=== PATIENT | female | born 1985 | race Caucasian/White ===

== ENCOUNTER 2019-09-18 09:37 | Outpatient (CLI) | payer OTHER ==
--- NOTE | 2019-09-18 10:25 | MMO ---
Bilateral MAMMO Bilat Diag [facility]. CLINICAL HISTORY: Patient is 34 years old and is seen for diagnostic exam and pain in the right breast. The patient has the following family history of breast cancer: maternal grandmother, malignant (generic) and maternal grandmother, malignant (generic), [place]. The patient has no personal history of cancer. VIEWS: The views performed were: bilateral craniocaudal with tomosynthesis; bilateral mediolateral oblique with tomosynthesis; and bilateral mediolateral with tomosynthesis. This study has been interpreted with the assistance of computer-aided detection. MAMMOGRAM FINDINGS: The breasts are heterogeneously dense, which could obscure a lesion on mammography. There are no suspicious masses, suspicious calcifications, or new areas of architectural distortion. There are no mammographic abnormalities to explain the patient's breast pain. The patient is referred back to her clinician. Negative imaging findings should not preclude biopsy if clinical findings are suspicious. IMPRESSION: THERE ARE NO MAMMOGRAPHIC ABNORMALITIES TO EXPLAIN THE PATIENT'S BREAST PAIN. THE PATIENT IS REFERRED BACK TO HER CLINICIAN. NEGATIVE IMAGING FINDINGS SHOULD NOT PRECLUDE BIOPSY IF CLINICAL FINDINGS ARE SUSPICIOUS. THE RESULTS OF THIS EXAM WERE SENT TO THE PATIENT. ACR BI-RADS Category 1 - Negative MAMMOGRAPHY NOTE: 1. A negative mammogram report should not delay a biopsy if a dominant of clinically suspicious mass is present. 2. Approximately 10% to 15% of breast cancers are not detected by mammography. 3. Adenosis and dense breasts may obscure an underlying neoplasm. Reported by: SARAH JONES MD Electonically Signed: [id number]
== END 2019-09-18 09:38 | disposition home or self-care (01) ==
LOC: BICMAMMO 09:37
PROVIDERS: ATTEND Nurse Practitioner Family
DX: N64.4 Mastodynia (principal)
CPT/HCPCS: 77066; G0279

== ENCOUNTER 2020-02-11 09:52 | Day surgery (SDC) | payer OTHER ==
[2020-02-08 15:14] LABS: Hemoglobin 12.5 g/dL (12.0-16.0); Mean Corpuscular HGB CONC 30.6 G/DL (32.0-36.0); Mean Corpuscular Hemoglobin 26.5 PG (27.0-33.0); Mean Corpuscular Volume 86.8 fl (80.0-100.0); Mean Platelet Volume 10.5 fl (7.4-10.4); Platelet Count 294 10x3/uL (130-400); RBC Distribution Width 13.9 % (11.5-14.5); Red Blood Cell (RBC) Count 4.71 10x6/uL (3.90-5.20); White Blood Cell (WBC) Count 8.3 10x3/uL (4.5-11.0)
[2020-02-08 15:41] LABS: BHCG - Serum Negative (NEGATIVE); Pregs Control Background? CLEAR/WHITE (CLR/WHITE); Pregs Control Bar Appear? YES (CONTROL BAR)
[2020-02-09 02:10] LABS: SARS-CoV-2 MS2 Positive; SARS-CoV-2 N Gene Negative; SARS-CoV-2 S Gene Negative; SARS-CoV-2 by NAA Not Detected (NotDetected); SARS-CoV-2 orf1ab Negative
[2020-02-10 10:37] VITALS: BMI 31.1
[2020-02-11] MEDS ORDERED: Midazolam HCl 2 mg/2 ml Vial ONE (11:08)
[2020-02-11] MEDS ORDERED: Ondansetron PF 4 MG/2 ML Vial ONE (11:20)
[2020-02-11] MEDS ORDERED: Rocuronium Bromide 10 MG/ML (10ML VIAL) ONE (11:20)
[2020-02-11] MEDS ORDERED: Dexamethasone 20 MG/5 ML VIAL ONE (11:20)
[2020-02-11] MEDS ORDERED: PHENYLEPHRINE-NS 100 MCG/ML 10 ML SYRINGE ONE (11:20)
[2020-02-11] MEDS ORDERED: Esmolol 100 MG/10 ML VIAL ONE (11:20)
[2020-02-11] MEDS ORDERED: Glycopyrrolate 0.2 MG/ML 5 ML SYRINGE ONE (11:20)
[2020-02-11] MEDS ORDERED: Lidocaine 1% PF 5 ML VIAL ONE (11:20)
[2020-02-11] MEDS ORDERED: PROPOFOL 200 MG/20 ML VIAL ONE (11:20)
[2020-02-11] MEDS ORDERED: Fentanyl 100 MCG/2 ML VIAL ONE ×3 (11:36→13:52)
[2020-02-11] MEDS ORDERED: Bupivacaine PF 0.5% 30 ML VIAL ONE (12:00)
[2020-02-11] MEDS ORDERED: Lidocaine 1% w/Epinephrine 1:100K 20 ML VIAL ONE (12:00)
[2020-02-11] MEDS ORDERED: CeleCOXIB 100 MG CAP ONE (12:04)
[2020-02-11] MEDS ORDERED: Morphine 4 MG/ML VIAL ONE (14:45)
[2020-02-11] MEDS ORDERED: HYDROcodone/Acetaminophen 5/325 mg Tablet ONE (16:08)
--- NOTE | 2020-02-12 15:17 | OP ---
DATE OF PROCEDURE: 02/11/2020 PREOPERATIVE DIAGNOSES: 1. Menorrhagia. 2. Left hydrosalpinx. POSTOPERATIVE DIAGNOSES: 1. Menorrhagia. 2. Left hydrosalpinx. PROCEDURES PERFORMED: 1. Laparoscopic left salpingectomy. 2. Hysteroscopy. 3. Dilation and curettage. 4. Annalise endometrial ablation. ANESTHESIA: General endotracheal. PHYSICAL METEOROLOGIST SURGEON: None. ESTIMATED BLOOD LOSS: 10 mL. IVF: 1200 mL crystalloid. URINE OUTPUT: 100 mL of clear urine. COMPLICATIONS: None. DRAINS: None. PATHOLOGY: Endometrial curettings and left fallopian tube. FINDINGS: Uterus was 10 cm. Cervix was 4.5 cm. Normal-appearing uterine cavity with proliferative endometrium. No intrauterine masses. Bilateral tubal ostia were visualized. The fluid deficit for hysteroscopy was 200 mL using normal saline as distention media. There were normal ovaries and normal uterus. On laparoscopic examination, the left fallopian tube had several cysts of Morgagni present, it did not appear to be a hydrosalpinx. There was a normal right fallopian tube with a post tubal ligation, Filshie clips bilaterally. One Filshie clip was dislodged and free in the pelvis and this was removed from the abdomen. DESCRIPTION OF PROCEDURE: The patient was taken to the operating room where general anesthesia was obtained difficulty. The patient was prepped and draped in a sterile fashion in the dorsal lithotomy position. A Rios catheter was placed in the bladder. A sponge stick was placed in the vagina. Legs were placed in low lithotomy. Attention was turned to the abdomen. A mixture of 0.5% Marcaine plain and 1% lidocaine with epi was infiltrated into the umbilicus and a 5-mm skin incision was made in the umbilicus. The Veress needle was passed to the abdomen, noting opening pressure of 2 mmHg. Pneumoperitoneum was obtained. The 5-mm trocar and camera were passed optically into the abdomen and steep Trendelenburg was obtained. The right and left lower quadrant 5-mm ports were placed under direct visualization after infiltrating with anesthetic mixture. A blunt probe was then used to visualize the pelvic structures and perform photodocumentation. At that time, the LigaSure was used and the left fallopian tube was grasped and elevated and the mesosalpinx was sequentially clamped and cauterized and incised with the LigaSure until the medial portion was met. This was clamped across perpendicularly and cauterized, incised, and the fallopian tube was then placed in the cul-de-sac. There were no other abnormalities in the pelvis. There was no evidence of endometriosis. The left lower quadrant 5-mm port was then traded out for the 8-mm port and a 5-mm bag was placed through this and the fallopian tube was then retrieved out of the abdomen. Pneumoperitoneum was released and all ports were removed from the abdomen. The skin was closed with 4-0 Monocryl in a subcuticular fashion. Dermabond was applied. Attention was then turned to the vagina where the sponge stick was removed and a speculum was placed. The anterior lip of the cervix was grasped with a single-tooth tenaculum. The cervix was then progressively dilated with Ervin dilators. The 5-mm hysteroscope was inserted into the uterus and the visualization and findings were as above. Normal saline was used as distention media. Photodocumentation was performed. The hysteroscope was removed. Sharp curettage was taken to the uterine wall and this was sent for final pathology. The Annalise ablation device was then opened and assembled. The cavity length was set to 5.5 cm. The array was then deployed into the uterus once the fundus was met and the balloon was inflated. Cavity check was performed. Initially, the cavity check failed. The array was then collapsed and removed out of the patient. The device was then again deployed into the cavity. The balloon was then inflated with 10 mL instead of just 5 mL of air. The cavity check was performed and passed. The Annalise ablation was performed for 120 seconds and then the array was collapsed and removed out of the patient again. The hysteroscope was then reinserted into the uterus with a good babar to all uterine lockwood and no abnormalities noted. All instruments were removed out of the vagina. The patient tolerated the procedure well. Sponge, lap, and needle counts correct x2. The patient was taken to recovery room in stable condition. Job ID: [id number]
== END 2020-02-11 16:50 | disposition home or self-care (01) ==
LOC: SDC 09:52
PROVIDERS: ATTEND Student in an Organized Health Care Education/Training Program
PROC: 0UT64ZZ Resection of Left Fallopian Tube, Percutaneous Endoscopic Approach (ICD-10-PCS; principal; 2020-02-11)
PROC: 0U5B8ZZ Destruction of Endometrium, Via Natural or Artificial Opening Endoscopic (ICD-10-PCS; principal; 2020-02-11)
PROC: 0UDB8ZZ Extraction of Endometrium, Via Natural or Artificial Opening Endoscopic (ICD-10-PCS; principal; 2020-02-11)
DX: N70.11 Chronic salpingitis (principal); F32.9 Major depressive disorder, single episode, unspecified; I47.1 Supraventricular tachycardia; Z79.82 Long term (current) use of aspirin; Z79.899 Other long term (current) drug therapy; Z88.2 Allergy status to sulfonamides
CPT/HCPCS: 84703; 85027; 86850; 86900; 86901; 87635; 88302; 88305; J1100; J2250; J2270; J2405; J2704; J3010; S0020; U0003

== ENCOUNTER 2020-02-24 08:29 | Outpatient (CLI) | payer OTHER ==
[2020-02-24 17:14] LABS: Hemoglobin 12.9 g/dL (12.0-16.0); Mean Corpuscular HGB CONC 31.1 G/DL (32.0-36.0); Mean Corpuscular Hemoglobin 26.6 PG (27.0-33.0); Mean Corpuscular Volume 85.6 fl (80.0-100.0); Mean Platelet Volume 10.7 fl (7.4-10.4); Platelet Count 308 10x3/uL (130-400); RBC Distribution Width 13.5 % (11.5-14.5); Red Blood Cell (RBC) Count 4.85 10x6/uL (3.90-5.20); White Blood Cell (WBC) Count 6.3 10x3/uL (4.5-11.0)
[2020-02-24 17:25] LABS: PTT 26.9 sec (22.0-33.0); Prothrombin Time 10.6 sec (9.5-12.1)
[2020-02-24 17:32] LABS: Anion Gap 14 mmol/L (10-20); BUN (Urea Nitrogen) 10 mg/dL (7.0-18.7); Calc. Creatinine Clearance 0 mL/min (70-130); Calcium 9.4 mg/dL (7.8-10.44); Carbon Dioxide 25 mmol/L (22-29); Chloride 105 mmol/L (98-107); Glucose 97 mg/dL (70-105); Potassium 3.5 mmol/L (3.5-5.1); Sodium 140 mmol/L (136-145)
[2020-02-25 02:42] LABS: SARS-CoV-2 MS2 Positive; SARS-CoV-2 N Gene Negative; SARS-CoV-2 S Gene Negative; SARS-CoV-2 by NAA Not Detected (NotDetected); SARS-CoV-2 orf1ab Negative
== END 2020-02-24 08:30 | disposition home or self-care (01) ==
LOC: LABBT 08:29
PROVIDERS: ATTEND Internal Medicine Cardiovascular Disease
DX: Z01.812 Encounter for preprocedural laboratory examination (principal); Z20.828 Contact with and (suspected) exposure to other viral communicable diseases; I47.1 Supraventricular tachycardia
CPT/HCPCS: 80048; 85027; 85610; 85730; 87635; U0003

== ENCOUNTER 2020-03-02 06:12 | Day surgery (SDC) | payer OTHER ==
[2020-02-23 08:44] VITALS: BMI 30.2
[2020-03-02] MEDS ORDERED: Isoproterenol 0.2 MG/1 ML AMP ONE ×2 (06:36→09:02)
[2020-03-02] MEDS ORDERED: Heparin 10,000 UNITS/ 10 ML VIAL ONE (07:42)
[2020-03-02] MEDS ORDERED: Propofol 1,000 MG/100 ML VIAL IV ONE (08:15)
[2020-03-02] MEDS ORDERED: Midazolam HCl 2 mg/2 ml Vial ONE (08:20)
[2020-03-02] MEDS ORDERED: Fentanyl 100 MCG/2 ML VIAL ONE ×3 (08:21→12:10)
[2020-03-02] MEDS ORDERED: Ondansetron PF 4 MG/2 ML Vial ONE ×2 (08:36→11:51)
[2020-03-02] MEDS ORDERED: Famotidine/PF 20 mg/2ml Vial ONE (09:39)
[2020-03-02] MEDS ORDERED: Dexamethasone 4 mg/ml Vial ONE (09:39)
[2020-03-02] MEDS ORDERED: PROPOFOL 200 MG/20 ML VIAL ONE (11:51)
[2020-03-02] MEDS ORDERED: Dexamethasone 20 MG/5 ML VIAL ONE (11:51)
--- NOTE | 2020-03-02 21:31 | EKG ---
Test Reason : ENRIQUE Blood Pressure : / mmHG Vent. Rate : 096 BPM Atrial Rate : 096 BPM P-R Int : 126 ms QRS Dur : 078 ms QT Int : 336 ms P-R-T Axes : 027 050 028 degrees QTc Int : 424 ms Normal sinus rhythm Normal ECG When compared with ECG of 02-MAR-2020 07:16, (Unconfirmed) No significant change was found Confirmed by Giovanny FELIX ([id number]) on 03/02/2020 9:31:23 PM Referred By: ENRIQUE Confirmed By:Giovanny FELIX
--- NOTE | 2020-03-02 21:31 | EKG ---
Test Reason : PREOP Blood Pressure : / mmHG Vent. Rate : 116 BPM Atrial Rate : 116 BPM P-R Int : 162 ms QRS Dur : 072 ms QT Int : 312 ms P-R-T Axes : 062 045 034 degrees QTc Int : 433 ms Sinus tachycardia Otherwise normal ECG When compared with ECG of 21-OCT-2019 10:50, Nonspecific T wave abnormality now evident in Inferior leads Confirmed by Giovanny FELIX ([id number]) on 03/02/2020 9:30:57 PM Referred By: ENRIQUE Confirmed By:Giovanny FELIX
--- NOTE | 2020-03-03 07:38 | OP ---
DATE OF PROCEDURE: 03/02/2020 PROCEDURES PERFORMED: 1. Comprehensive EP testing with three-dimensional mapping and attempted ablation of supraventricular tachycardia. 2. Intracardiac echocardiography. CLINICAL INDICATION: Recurrent SVT with what appears to be inappropriate sinus tachycardia. ASA CLASSIFICATION: III. ANESTHESIA: Total IV anesthesia per Anesthesiology. ADDITIONAL CARDIOACTIVE MEDICATIONS: None. ESTIMATED BLOOD LOSS: Less than 5 mL. TOTAL FLUOROSCOPY TIME: Zero. TOTAL RF TIME: 2 minutes and 45 seconds. ACUTE COMPLICATIONS: None apparent. DESCRIPTION OF PROCEDURE: After informed consent was obtained, the patient was taken to the EP lab in a fasting state. Both groins were prepped and draped. Using ultrasound guidance, the right and left femoral veins were accessed, and wires were inserted into the central venous system. The wires were used to place 10-[place] and 8-[place] sheaths in the left groin. Two 8-[place] sheaths were placed in the right groin. All 8-[place] sheaths were then replaced by long sheaths for catheter stability. A 10-[place] echo probe was placed in the left groin and advanced up to the right atrium and the right ventricle for imaging. A PentaRay and ablation catheter were placed in the right groin and advanced up to the right atrium. A three-dimensional map was obtained of the right atrium and coronary sinus. A 20-pole catheter was placed in the left groin and advanced up to the coronary sinus, the proximal end rested along the jaki terminalis. Program stimulation was performed with the catheter in the ventricle and in the atrium. Mapping was performed of the patient's baseline arrhythmia, which appeared to be sinus tachycardia. Pacing was also performed in detail to outline area and location of the phrenic nerve. This was mapped all the way down to the upper portion of the right atrium. The patient's earliest atrial activation appeared to be a sinus mechanism, which was just anterior to the position of the phrenic nerve, and no phrenic capture could be obtained at the site of earliest activation, so this area was ablated; however, after exhaustive ablation in this area, the earliest activation shifted more posterior and directly inline with the phrenic nerve. Because of the risk of phrenic nerve injury, further ablation was not possible without rescheduling the case with epicardial access and balloon displacement of the phrenic nerve. At the conclusion of procedure, catheters were withdrawn. Sheaths were pulled. Hemostasis was achieved with suture and collagen closure. RESULTS: 1. Baseline intervals: Spontaneous sinus cycle length was 129 . QRS duration 99 milliseconds. QT interval 360 milliseconds. HV interval 37 milliseconds. 2. Atrial function: Program stimulation failed to induce any SVT other than sinus tachycardia. 3. AV mindy function: Anterograde block occurred at a paced cycle length of 300 milliseconds with no evidence of dual pathways. Retrograde block occurred at a cycle length of 290 milliseconds with concentric conduction and no evidence of dual pathways. No other supraventricular tachycardia arrhythmias could be demonstrated other than sinus tachycardia. 4. Ablation details: A total of 2 minutes and 45 seconds of RF were delivered with Ban[employer] Workster, contact force, sensor-enabled open-irrigated ablation catheter to ablate area just anterior to the phrenic nerve. IMPRESSION: 1. No evidence of inducible AV mindy reentry or accessory pathway function could be demonstrated at baseline or at the conclusion. 2. Clear evidence of sinus tachycardia, which appeared to be very inappropriate with resting heart rates of 130 beats per minute that were seen and were mapped using standard three-dimensional activation mapping to the position of the upper portion of sinus node. Phrenic nerve mapping was also performed, which was demonstrated to be just posterior to the sinus node; however, after ablation of the earliest signals that were just anterior to the phrenic nerve location, the activation shifted more posterior, directly inline with the phrenic nerve, so further ablation could not be done. RECOMMENDATION: 1. Discharge home in 2 hours. 2. Reschedule ablation procedure in [place] with epicardial balloon displacement of the phrenic nerve followed by aggressive ablation of sinus node. Job ID: [id number]
== END 2020-03-02 12:32 | disposition home or self-care (01) ==
LOC: SDC 06:12
PROVIDERS: ATTEND Internal Medicine Cardiovascular Disease
PROC: 4A0234Z Measurement of Cardiac Electrical Activity, Percutaneous Approach (ICD-10-PCS; principal; 2020-03-02)
PROC: 4A023FZ Measurement of Cardiac Rhythm, Percutaneous Approach (ICD-10-PCS; principal; 2020-03-02)
PROC: 02583ZZ Destruction of Conduction Mechanism, Percutaneous Approach (ICD-10-PCS; principal; 2020-03-02)
PROC: 02K83ZZ Map Conduction Mechanism, Percutaneous Approach (ICD-10-PCS; principal; 2020-03-02)
DX: I47.1 Supraventricular tachycardia (principal); Z79.899 Other long term (current) drug therapy; Z88.2 Allergy status to sulfonamides
CPT/HCPCS: 76942; 93005; 93010; 93613; 93653; 93662; C1732; C1759; C1884; J1100; J1644; J2250; J2405; J2704; J3010; S0028

== ENCOUNTER 2020-08-29 13:28 | Emergency (ER) | payer OTHER ==
[2020-08-29 14:03] LABS: Bilirubin Negative (Negative); Blood, Urine Negative (Negative); Glucose, Urine (Dipstick) Negative (Negative); Ketone, Urine Negative (Negative); Leukocyte Negative (Negative); Nitrite Negative (Negative); Protein, Urine (Dipstick) Negative (Neg-Trace); Urobilinogen 0.2 mg/dL (Less than 2); pH, Urine 7.5 (5.0-9.0)
[2020-08-29 14:05] LABS: Clarity Clear (Clear)
[2020-08-29 14:08] LABS: #Basophils 0.1 thou/uL (0.0-0.2); #Eosinphils 0.2 thou/uL (0.0-0.7); #Lymphocytes 2.9 thou/uL (1.20-3.40); #Monocytes 0.6 thou/uL (0.11-0.59); #Neutrophils 4.3 thou/uL (1.40-6.50); %Lymphocytes 35.5 % (21.0-51.0); %Monocytes 7.7 % (0.0-10.0); %Neutrophils 52.7 % (42.0-75.0); Hemoglobin 14.1 g/dL (12.0-16.0); Mean Corpuscular HGB CONC 33.9 g/dL (32.0-36.0); Mean Corpuscular Hemoglobin 29.8 pg (27.0-31.0); Mean Corpuscular Volume 88.1 fL (78.0-98.0); Mean Platelet Volume 8.8 fL (7.4-10.4); Platelet Count 268 thou/uL (130-400); RBC Distribution Width 12.6 % (11.5-14.5); Red Blood Cell (RBC) Count 4.73 mill/uL (4.20-5.40); White Blood Cell (WBC) Count 8.1 thou/uL (4.8-10.8)
[2020-08-29 14:11] LABS: RBC/HPF 0-3 HPF (0-3); Squamous Epithelial 0-3 HPF (0-3); WBC/HPF 0-3 HPF (0-3)
[2020-08-29 14:12] LABS: Bacteria/HPF Rare-Few HPF (None Seen)
[2020-08-29 14:34] LABS: ALT (SGPT) 22 U/L (8-55); AST (SGOT) 17 U/L (5-34); Albumin 4.5 g/dL (3.5-5.0); Alkaline Phosphatase 52 U/L (40-110); Anion Gap 14 mmol/L (10-20); BUN (Urea Nitrogen) 14 mg/dL (7.0-18.7); Bilirubin, Total 0.5 mg/dL (0.2-1.2); Calc. Creatinine Clearance 0 mL/min (70-130); Calcium 9.4 mg/dL (7.8-10.44); Carbon Dioxide 25 mmol/L (22-29); Chloride 103 mmol/L (98-107); Globulin 3.3 g/dL (2.4-3.5); Glucose 86 mg/dL (70-105); Potassium 3.8 mmol/L (3.5-5.1); Protein, Total 7.8 g/dL (6.0-8.3); Sodium 138 mmol/L (136-145)
== END 2020-08-29 15:07 | disposition home or self-care (01) ==
LOC: ERS 13:28
DX: R07.89 Other chest pain (principal); Z79.82 Long term (current) use of aspirin
CPT/HCPCS: 71045; 80053; 81003; 84484; 85025; 93005

== ENCOUNTER 2021-08-17 08:12 | Outpatient (CLI) | payer BC | END 2021-08-17 08:13 | disposition home or self-care (01) | LOC: BICMAMMO 08:12 | PROVIDERS: ATTEND Advanced Practice Midwife | DX: N63.15 Unspecified lump in the right breast, overlapping quadrants (principal) | CPT/HCPCS: 77066; G0279 ==